=== PATIENT | male | born 1995 | race Hispanic/Latino ===

== ENCOUNTER 2020-03-12 07:00 | Emergency (ER) | payer OTHER, SELFPAY ==
--- NOTE | ~2020-03-12 | XR_ITS ---
XR ankle RT min 3V DATE: 03/12/2020 07:29 INDICATION: Lateral right ankle pain following injury TECHNIQUE: 4 views COMPARISON: None FINDINGS: There is mild lateral soft tissue swelling. No fracture or dislocation of the ankle or disr uption of the ankle mortise. No periosteal reaction or bone destruction. IMPRESSION: Mild lateral soft tissue swelling; no fracture or dislocation Reviewed, dictated and finalized at location A. MANA[employer] PROFESSIONAL
[2020-03-12 06:59] VITALS: BP 121/87; PULSE 83; RESP 16; TEMP 36.9; O2SAT 99
--- NOTE | 2020-03-12 07:20 | ED_ITS ---
HPI - Extremity Injury (Lower) General Chief Complaint: Extremity Injury, Lower Stated Complaint: ankle injury History of Present Illness HPI Narrative: Twisted his ankle on uneven ground today at work. Moderate pain to the medial malleolus. Unable to bear weight. No wound or deformity. Related Data Allergies Allergy/AdvReac Type Severity Reaction Status Date / Time No Known Allergies Allergy Mild Unverified 11/12/08 19:31 Review of Systems Review of Systems: All systems reviewed & are unremarkable except as noted in HPI and below Constitutional: Constitutional: Denies chills, Denies fever(s) and Denies weakness Cardiovascular: Cardiovascular: Denies chest pain Respiratory: Respiratory: Denies dyspnea Gastrointestinal: Gastrointestinal: Denies nausea Musculoskeletal: Musculoskeletal: Denies back pain Neurologic: Denies numbness and Denies weakness [facility] Past Medical History Medical History (Updated 03/12/20 @ 17:24 by Vignesh Arevalo MD) Healthy adult male Social History Social History (Updated 03/12/20 @ 17:25 by Vignesh Arevalo MD) Smoking status: Never smoker Exam Const: General: healthy appearing, no acute distress and alert Orientation/consciousness: patient oriented x3 HENMT: Head: normal to inspection Resp: Effort & Inspection: normal respiratory effort Cardio: Other: 2+ right DP and PT Skin: General skin exam: normal color Rashes: no rashes Wounds: no wounds Neuro: General: patient oriented x3, moves all extremities and no focal motor deficits Speech: normal speech Extrem: General: normal to inspection Other: tenderness inferior to the right medial malleolus. No wound or deformity Psych: Appearance: grossly normal and well kempt Mental Status: mental status grossly normal Affect: normal affect Course Vital Signs Vital signs: Vital Signs Temperature 36.9 C 03/12/20 06:59 Pulse Rate 83 03/12/20 06:59 Respiratory Rate 16 03/12/20 06:59 Blood Pressure 121/87 03/12/20 06:59 Pulse Oximetry 99 03/12/20 06:59 Temperature 36.9 C 03/12/20 06:59 Pulse Rate 80 03/12/20 08:03 Respiratory Rate 12 03/12/20 08:03 Blood Pressure 117/80 03/12/20 08:03 Pulse Oximetry 99 03/12/20 08:03 MDM - Extremity Injury (Lower) Differential Diagnosis Differential diagnosis: Likely ankle sprain and strain and ankle fracture Imaging Data Radiologist's impression: ITS Impressions Ankle X-Ray 03/12/20 07:37 IMPRESSION: Mild lateral soft tissue swelling; no fracture or dislocation Discharge Plan Discharge Clinical Impression: Right ankle sprain Qualifiers: Encounter type: initial encounter Involved ligament of ankle: unspecified ligament Qualified Code(s): S93.401A - Sprain of unspecified ligament of right ankle, initial encounter Patient Disposition: Home, Self-Care Condition: Stable Instructions: Ankle Sprain (ED) Prescriptions: New naproxen 500 mg tablet 500 mg PO BID PRN (Reason: pain) Qty: 30 RF: 0 Follow-up/Referrals: Blair,Luias Anderson MD [Non-Staff] -
[2020-03-12 08:03] VITALS: BP 117/80; PULSE 80; RESP 12; O2SAT 99
== END 2020-03-12 08:26 | disposition home or self-care (01) ==
PROVIDERS: Emergency Provider Emergency Medicine; PCP Physician Assistant
DX: S93.401A Sprain of unspecified ligament of right ankle, initial encounter (principal); X50.1XXA Overexertion from prolonged static or awkward postures, initial encounter
CPT/HCPCS: 73610; 99283